=== PATIENT | female | born 1975 | race Caucasian/White ===

== ENCOUNTER → 2021-10-15 | Outpatient (CLI) | payer BC | LOC: HEART CORB 10:24 | DX: R07.2 Precordial pain (principal); I10 Essential (primary) hypertension; Z86.16 Personal history of COVID-19; R60.0 Localized edema; R06.02 Shortness of breath; I08.1 Rheumatic disorders of both mitral and tricuspid valves; I27.20 Pulmonary hypertension, unspecified | CPT/HCPCS: 93306 ==